=== PATIENT | male | born 1975 | race Caucasian/White ===

== ENCOUNTER 2021-02-07 17:32 | Emergency (ER) | payer OTHER ==
[2021-02-07] MEDS ORDERED: ELIMITE 5% CREA60 GM TOP (17:47)
[2021-02-07 19:22] LABS: HEMOGLOBIN 11.9 gm/dl (14.0-17.5); RED BLOOD COUNT 4.16 M/UL (4.20-5.50); WHITE BLOOD COUNT 14.7 K/UL (4.5-11.0)
[2021-02-07 19:45] LABS: BUN/CREATININE RATIO 9 (0-10)
[2021-02-07] MEDS ORDERED: AMOXICILLIN500 MG PO (21:45)
[2021-02-07] MEDS ORDERED: TESSALON PERLE100 MG PO (21:45)
== END 2021-02-07 22:03 | disposition home or self-care (01) ==
LOC: ER1 17:32
PROVIDERS: Physician Assistant
DX: R05 Cough (principal); Z20.822 Contact with and (suspected) exposure to COVID-19; F17.210 Nicotine dependence, cigarettes, uncomplicated
CPT/HCPCS: 71045; 80053; 85025; 99283; U0002